=== PATIENT | male | born 1955 | race Caucasian/White ===

== ENCOUNTER 2019-02-09 15:33 | Emergency (ER) | payer SELFPAY ==
[~2019-02-09 15:33] MED LIST: ACYC800T99 PO; HYDR28OI11 TP; [UNRECOGNIZED DRUG - CODE] TP
[2019-02-09] MEDS ORDERED: ASPIRIN 81 MG CHEW ONE (15:42)
[2019-02-09] MEDS ORDERED: NITROGLYCERIN 0.4 MG SUBL SL ONE (15:42)
--- NOTE | 2019-02-09 15:43 | ER Report ---
History and Physical Time Seen By MD: 15:43 Hx. of Stated Complaint: tightness in the chest and trouble breathing for 20 mintues HPI/ROS CHIEF COMPLAINT: Chest tightness, shortness of breath HISTORY OF PRESENT ILLNESS: 63-year-old male patient presents to emergency room with complaint of chest tightness and shortness of breath. Patient states that this started approximately 30 minutes prior to arrival in the emergency room. Patient states that he was not in the middle doing anything but had the sudden onset of chest tightness and shortness of breath. He states he tried to get up and became dizzy and fell backwards. Patient states that happened twice. Patient states that he had a similar episode of this approximately 2 weeks ago, for which he did not seek any medical attention. He states that at that time the s ymptoms resolved after a few minutes. Patient states that this time he did have some tingling all over his body as well as a burning sensation. He states it went from muscles his feet up to the top of his head. He denies any nausea, vomiting or diarrhea. Patient denies having any chest pain. REVIEW OF SYSTEMS: Respiratory: As noted above Cardiovascular: No chest pain, no palpitations. Gastrointestinal: No vomiting, no abdominal pain. Musculoskeletal: No back pain. Allergies: Coded Allergies: No Known Drug Allergies (Verified Allergy, Mild, 01/31/08) Home Meds Reported Medications Acyclovir (Zovirax) 800 Mg Tablet, 800 MG PO 01/31/08 Calamine (Calamine) 120 Ml Lotion, 120 ML TP 01/31/08 Acyclovir (Zovirax) 800 Mg Tablet, 0 PO ONE TABLET BY MOUTH FIVE TIMES A DAY FOR FIVE DAYS 01/31/08 Hydrocortisone Acetate (Hydrocortisone) 28 Gm Oint..gm., 28 GM TP 01/31/08 Past Medical/Surgical History Patient denies any pertinent medical or surgical history. Reviewed Nurses Notes: Yes Constitutional Vital Sign - Last 24 Hours 02/09/19 02/09/19 02/09/19 02/09/19 15:33 15:36 15:36 15:44 Temp 97.5 Pulse 82 107 Resp 22 B/P (MAP) 135/77 135/77 (96) 98/74 (82) Pulse Ox 96 O2 Delivery Room Air 02/09/19 02/09/19 02/09/19 02/09/19 15:46 15:48 15:58 15:58 Pulse 99 93 Resp 20 24 B/P (MAP) 121/72 (88) Pulse Ox 95 96 O2 Delivery Room Air 02/09/19 02/09/19 02/09/19 02/09/19 16:00 16:03 16:05 16:18 Pulse 96 96 94 Resp 20 24 20 B/P (MAP) 83/60 (68) Pulse Ox 99 90 02/09/19 02/09/19 02/09/19 02/09/19 16:30 16:33 16:43 16:48 Pulse 90 94 Resp 14 11 B/P (MAP) 132/77 (95) Pulse Ox 91 92 O2 Flow Rate 2.0 02/09/19 02/09/19 02/09/19 02/09/19 17:00 17:03 17:18 17:19 Pulse 94 92 90 Resp 14 18 15 B/P (MAP) 122/67 (85) Pulse Ox 92 93 93 02/09/19 02/09/19 02/09/19 02/09/19 17:30 17:34 17:49 18:00 Pulse 91 92 Resp 13 19 B/P (MAP) 124/68 (86) 123/64 (83) Pulse Ox 91 91 02/09/19 02/09/19 02/09/19 02/09/19 18:04 18:19 18:30 18:35 Pulse 95 88 87 Resp 20 14 17 B/P (MAP) 121/63 (82) Pulse Ox 91 92 93 02/09/19 02/09/19 02/09/19 02/09/19 18:50 19:00 19:05 19:10 Pulse 90 91 90 Resp 13 15 18 B/P (MAP) 109/66 (80) Pulse Ox 93 94 94 02/09/19 02/09/19 02/09/19 02/09/19 19:25 19:30 19:40 19:55 Pulse 85 83 85 Resp 16 17 17 B/P (MAP) 110/71 (84) Pulse Ox 94 93 92 02/09/19 02/09/19 02/09/19 02/09/19 20:00 20:10 20:25 20:30 Pulse 85 84 Resp 17 17 B/P (MAP) 114/66 (82) 110/72 (85) Pulse Ox 93 94 02/09/19 02/09/19 02/09/19 02/09/19 20:35 20:50 21:00 21:05 Pulse 92 81 91 Resp 24 16 24 B/P (MAP) 117/75 (89) Pulse Ox 93 92 93 02/09/19 02/09/19 02/09/19 02/09/19 21:10 21:25 21:30 21:40 Pulse 91 82 84 Resp 26 12 14 B/P (MAP) 110/70 (83) Pulse Ox 94 93 93 02/09/19 02/09/19 02/09/19 02/09/19 21:55 22:00 22:10 22:25 Pulse 80 85 89 Resp 14 22 58 B/P (MAP) 107/68 (81) Pulse Ox 94 95 94 02/09/19 02/09/19 02/09/19 02/09/19 22:30 22:40 22:45 23:00 Pulse 76 86 85 Resp 11 25 24 B/P (MAP) 130/81 (97) 147/80 (102) Pulse Ox 93 89 90 02/09/19 02/09/19 02/09/19 02/09/19 23:24 23:30 23:45 23:50 Pulse 82 79 78 B/P (MAP) 133/73 (93) 125/79 (94) Pulse Ox 90 90 92 02/10/19 00:00 B/P (MAP) 131/79 (96) Intake and Output 02/09/19 02/09/19 02/10/19 14:59 22:59 06:59 Intake Total 1000 ml 500 ml Balance 1000 ml 500 ml Physical Exam General Appearance: The patient is alert, has no immediate need for airway protection and no current signs of toxicity. Respiratory: Chest is non tender, lungs are clear to auscultation. Patient is tachypneic. Cardiac: regular rate and rhythm Gastrointestinal: Abdomen is soft and non tender, no masses, bowel sounds normal. Musculoskeletal: Neck: Neck is supple and non tender. Extremities have full range of motion and are non tender. Skin: No rashes or lesions. DIFFERENTIAL DIAGNOSIS: After history and physical exam differential diagnosis was considered for chest pain including but not limited to myocardial ischemia, pericarditis pulmonary embolus, chest wall pain, pleural inflammation and pulmonary infectious causes. Medical Decision Making Data Points Result Diagram: 02/09/19 1542 02/09/19 1542 Laboratory Hematology Test 02/09/19 15:42 02/09/19 20:41 Red Blood Count 6.19 M/uL (4.00-5.60) Mean Corpuscular Volume 88.4 fL (80.0-96.0) Mean Corpuscular Hemoglobin 31.0 pg (26.0-33.0) Mean Corpuscular Hemoglobin Concent 35.1 g/dL (32.0-36.0) Red Cell Distribution Width 14.6 % (11.5-14.5) Mean Platelet Volume 7.9 fL (7.2-11.1) Neutrophils (%) (Auto) 71.1 % (39.4-72.5) Lymphocytes (%) (Auto) 20.9 % (17.6-49.6) Monocytes (%) (Auto) 6.1 % (4.1-12.4) Eosinophils (%) (Auto) 1.4 % (0.4-6.7) Basophils (%) (Auto) 0.5 % (0.3-1.4) Nucleated RBC Relative Count (auto) 0.0 /100WBC Neutrophils # (Auto) 5.7 K/uL (2.0-7.4) Lymphocytes # (Auto) 1.7 K/uL (1.3-3.6) Monocytes # (Auto) 0.5 K/uL (0.3-1.0) Eosinophils # (Auto) 0.1 K/uL (0.0-0.5) Basophils # (Auto) 0.0 K/uL (0.0-0.1) Nucleated RBC Absolute Count (auto) 0.00 K/uL D-Dimer Quantitative (PE/DVT) 3.62 ug/ml (0-0.50) Sodium Level 136 mmol/L (137-145) Potassium Level 3.4 mmol/L (3.5-5.0) Chloride Level 103 mmol/L (98-107) Carbon Dioxide Level 22 mmol/L (22-30) Blood Urea Nitrogen 19 mg/dl (9-21) Creatinine 1.80 mg/dl (0.66-1.25) Glomerular Filtration Rate Calc 38.3 Random Glucose 149 mg/dl (75-110) Calcium Level 9.0 mg/dl (8.4-10.2) Total Bilirubin 0.4 mg/dl (0.2-1.3) Aspartate Amino Transf (AST/SGOT) 43 U/L (0-35) Alanine Aminotransferase (ALT/SGPT) 31 U/L (0-56) Alkaline Phosphatase 86 U/L (0-126) Total Protein 7.1 g/dl (6.3-8.2) Albumin 4.2 g/dl (3.5-5.0) Troponin I 0.089 ng/ml Chemistry Test 02/09/19 15:42 02/09/19 20:41 White Blood Count 8.1 k/uL (4.5-11.0) Red Blood Count 6.19 M/uL (4.00-5.60) Hemoglobin 19.2 g/dL (14.0-18.0) Hematocrit 54.8 % (42.0-52.0) Mean Corpuscular Volume 88.4 fL (80.0-96.0) Mean Corpuscular Hemoglobin 31.0 pg (26.0-33.0) Mean Corpuscular Hemoglobin Concent 35.1 g/dL (32.0-36.0) Red Cell Distribution Width 14.6 % (11.5-14.5) Platelet Count 262 K/uL (150-450) Mean Platelet Volume 7.9 fL (7.2-11.1) Neutrophils (%) (Auto) 71.1 % (39.4-72.5) Lymphocytes (%) (Auto) 20.9 % (17.6-49.6) Monocytes (%) (Auto) 6.1 % (4.1-12.4) Eosinophils (%) (Auto) 1.4 % (0.4-6.7) Basophils (%) (Auto) 0.5 % (0.3-1.4) Nucleated RBC Relative Count (auto) 0.0 /100WBC Neutrophils # (Auto) 5.7 K/uL (2.0-7.4) Lymphocytes # (Auto) 1.7 K/uL (1.3-3.6) Monocytes # (Auto) 0.5 K/uL (0.3-1.0) Eosinophils # (Auto) 0.1 K/uL (0.0-0.5) Basophils # (Auto) 0.0 K/uL (0.0-0.1) Nucleated RBC Absolute Count (auto) 0.00 K/uL D-Dimer Quantitative (PE/DVT) 3.62 ug/ml (0-0.50) Glomerular Filtration Rate Calc 38.3 Calcium Level 9.0 mg/dl (8.4-10.2) Total Bilirubin 0.4 mg/dl (0.2-1.3) Aspartate Amino Transf (AST/SGOT) 43 U/L (0-35) Alanine Aminotransferase (ALT/SGPT) 31 U/L (0-56) Alkaline Phosphatase 86 U/L (0-126) Total Protein 7.1 g/dl (6.3-8.2) Albumin 4.2 g/dl (3.5-5.0) Troponin I 0.089 ng/ml Coagulation Test 02/09/19 15:42 D-Dimer Quantitative (PE/DVT) 3.62 ug/ml EKG/Imaging EKG Interpretation 12 lead EKG: Rhythm: Sinus tachycardia with a ventricular rate of 103 bpm [place]: normal QRS: Right bundle branch block ST segments: normal 12 lead EKG done at 2017: Rhythm: normal sinus rhythm with a ventricular rate of 84 bpm [place]: normal QRS: Right bundle branch block ST segments: normal Imaging Chest with lateral, two views. HISTORY: Chest pain, shortness of breath. COMPARISON: None. Vague nodular densities project on the lower chest bilaterally consistent with nipple shadows. The heart and mediastinum are unremarkable. Pulmonary vessels are unremarkable. The lungs are otherwise clear. The pleural surfaces are unremarkable. No pneumothorax. Degenerative changes are present in the spine and shoulders. IMPRESSION: No evidence of acute cardiopulmonary disease. Report Dictated By: Seamus Turner MD at 02/09/2019 4:36 PM Report E-Signed By: Seamus Turner MD at 02/09/2019 4:[address] PE DATE: 02/09/2019 11:43 PM INDICATION: Elevated d-dimer, chest tightness. COMPARISON: Same-day chest radiographs. TECHNIQUE: Axial CT angiogram was obtained through the chest with intravenous contrast. Sagittal and coronal MPR and MIP coronal reformations were also generated. 75 mL isovue 370. One of the following dose optimization techniques was utilized in the performance of this exam: Automated exposure control; adjustment of the mA and/or kV according to the patient's size; or use of an iterative reconstruction technique. Specific details can be referenced in the facility's radiology CT exam operational policy. FINDINGS: Thyroid / Thoracic Inlet: No adenopathy. 2.6 x 2.0 cm hypoattenuating nodule in the superior aspect of the right thyroid lobe. Pulmonary Arteries: Normal. Heart and Aorta: Normal-size heart with no pericardial effusion. Nonaneurysmal thoracic aorta with moderate irregular atherosclerosis. Mediastinum and Kami: Shotty lymph nodes are likely reactive. Lungs and Pleura: No pleural effusion or pneumothorax. Mild atelectasis. No suspicious consolidation. Breast and Axilla: No axillary lymphadenopathy. Upper Abdomen: No visualized acute abnormality. Multiple small hepatic cysts. Bones and Soft Tissues: No suspicious osseous or soft tissue abnormality. IMPRESSION: 1. No pulmonary embolism or other acute abnormality. 2. Moderate irregular atherosclerosis of the aorta. 3. 2.6 cm hypoattenuating right thyroid nodule. This could be further evaluated with nonemergent ultrasound if not previously performed. Dr. Grace discussed this case with OLYA CHEN on 02/09/2019 11:53 PM. Report Dictated By: Pradip Grace MD at 02/09/2019 11:43 PM Report E-Signed By: Pradip Grace MD at 02/09/2019 11:53 PM ED Course/Re-evaluation ED Course Patient was admitted on exam room, history and physical obtained. Differential diagnoses were considered. On examination lungs are clear, heart is regular although tachycardia, abdomen was soft nontender. An IV was started, CBC, CMP, troponin, EKG, chest x-ray were done. Patient did receive a dose of aspirin 324 mg. Initial lab results were unremarkable, EKG showed a sinus tachycardia with a right bundle branch block. Chest x-ray showed no acute findings. I did opt to hang on the patient and repeat a troponin at 3 hours from onset of the chest tightness. The results came back as indeterminant at 0.063. I discussed the findings with the patient. I informed him that I would like to go ahead and watch him for couple more hours and repeat the troponin again. Patient verbalized agreement. Repeat troponin had gone up but still remained in the indeterminate range of 0.089. With the troponin continued to go upper did speak with cardiology [facility], Dr. Waters. He recommended doing a d-dimer to make sure that this wasn't caused by a pulmonary embolism. A d-dimer was done which was elevated at 3.62. We discussed doing a CT pulmonary angiogram which the patient reluctantly agreed to. The results were negative. I discussed the options of being admitted to the hospital, so we repeated the troponin in the morning. The patient adamantly refused stating he would not be admitted to the hospital. He asked if we could do an outpatient lab in the morning. With him not being willing to stay in the hospital and get lab work done here in the hospital and be continued to be monitored we will go ahead and give him an order for an outpatient lab. I will have the results sent to me. I will contact the patient with the lab results. Patient is to return to emergency room with any worsening of his condition. Patient and his verbalized understanding and agreement with plan. I do have concerns about continuing elevation of the troponin. It is my hope that with repeat lab tomorrow that that will return to a lower level. I did discuss the case with Dr. Tapia, hospitalist to see how he felt about admitting. He was uncertain as he was not sure if the troponin was going to stay negative but felt that he could repeat the troponin the morning. However with the patient refusing admission we will go ahead and discharge. Decision to Disposition Date: Feb 10, 2019 Decision to Disposition Time: 00:07 Depart Departure Latest Vital Signs Vital Signs Date Time Temp Pulse Resp B/P (MAP) Pulse Ox O2 Delivery O2 Flow Rate FiO2 02/10/19 00:00 131/79 (96) 02/09/19 23:50 78 92 02/09/19 23:00 24 02/09/19 16:43 2.0 02/09/19 15:58 Room Air 02/09/19 15:36 97.5 Impression: Primary Impression: Chest tightness Condition: Improved Disposition: HOME OR SELF-CARE Patient Instructions: Chest Pain (ED) Additional Instructions: Get plenty of rest. Follow up with [facility] in 1 week. Have a repeat Troponin done tomorrow morning. I will call you with the results. Return to the ER if condition worsens. Take a full strength Aspirin daily. OLYA CHEN Feb 09, 2019 15:43
[2019-02-09] MEDS ORDERED: NS(*) 0.9% 1000 ML BAG 1,000 ML IV ONE (15:51)
[2019-02-09] MEDS ORDERED: ALBUTEROL/IPRATROPIUM 3 ML NEB NEB ONE (15:55)
[2019-02-09] MEDS ORDERED: ASPIRIN 81 MG CHEW PO ONE (15:55)
[2019-02-09 16:08] LABS: PLATELET COUNT, AUTOMATED 262 K/uL (150-450)
--- NOTE | 2019-02-09 16:08 | EKG ---
[place] [facility] [place] NAME: GABRIELA CHEUNG : [id number] MR: [id number] V: [id number] EXAM DATE: ORDERING PHYSICIAN: OLYA CHEN TECHNOLOGIST: RHODA Test Reason : CP Blood Pressure : / mmHG Vent. Rate : 103 BPM Atrial Rate : 103 BPM P-R Int : 142 ms QRS Dur : 142 ms QT Int : 380 ms P-R-T Axes : 065 087 046 degrees QTc Int : 497 ms Sinus tachycardia Right bundle branch block Abnormal ECG No previous ECGs available Confirmed by Ike Bhardwaj ([id number]) on 02/09/2019 4:47:25 PM Referred By: AMBER Confirmed By:Ike Lizama
--- NOTE | 2019-02-09 16:42 | RADIOLOGY IMAGING REPORT ---
[place] [facility] [place] Braulio Piper : 1955 MR: [id number] V: [id number] EXAM DATE: ORDERING PHYSICIAN: OLYA CHEN TECHNOLOGIST: Location: [facility] Patient: Braulio Piper : 1955 Visit/Account:[id number] Date of Sevice: 02/09/2019 Chest with lateral, two views. HISTORY: Chest pain, shortness of breath. COMPARISON: None. Vague nodular densities project on the lower chest bilaterally consistent with nipple shadows. The h eart and mediastinum are unremarkable. Pulmonary vessels are unremarkable. The lungs are otherwise clear. The pleural surfaces are unremarkable. No pneumothorax. Degenerative changes are present in t he spine and shoulders. IMPRESSION: No evidence of acute cardiopulmonary disease. Report Dictated By: Seamus Turner MD at 02/09/2019 4:36 PM Report E-Signed By: Seamus Turner MD at 02/09/2019 4:37 PM WSN:[email or web address]
--- NOTE | 2019-02-09 20:58 | EKG ---
FACILITY: PATIENT NAME: GABRIELA CHEUNG : [id number] MR: [id number] V: [id number] EXAM DATE: ORDERING PHYSICIAN: OLYA CHEN TECHNOLOGIST: DUSTIN Test Reason : REPEAT EKG Blood Pressure : / mmHG Vent. Rate : 084 BPM Atrial Rate : 084 BPM P-R Int : 160 ms QRS Dur : 146 ms QT Int : 402 ms P-R-T Axes : 039 058 009 degrees QTc Int : 475 ms Normal sinus rhythm Right bundle branch block Abnormal ECG When compared with ECG of 09-FEB-2019 15:41, T wave inversion now evident in Inferior leads Confirmed by Ike Bhardwaj ([id number]) on 02/10/2019 6:48:48 AM Referred By: Confirmed By:Ike Lizama
[2019-02-09] MEDS ORDERED: NICOTINE INH SYSTEM 10 MG/INH INH PRN (22:50)
[2019-02-09] MEDS ORDERED: NICOTINE CARTRIDGE 1 EA PO ONE (22:52)
[2019-02-09] MEDS ORDERED: NS(*) 0.9% 500 ML BAG 500 ML IV ONE (22:55)
[2019-02-09] MEDS ORDERED: IOPAMIDOL 76% 150 ML INFUS BTL 150 ML ONE (23:06)
[2019-02-09] MEDS ORDERED: NS 0.9% 25 ML BAG 50 ML ONE (23:07)
--- NOTE | 2019-02-09 23:57 | RADIOLOGY IMAGING REPORT ---
FACILITY: [facility] PATIENT NAME: Braulio Piper : 1955 MR: [id number] V: [id number] EXAM DATE: [id number] ORDERING PHYSICIAN: OLYA CHEN TECHNOLOGIST: [facility] Patient: Braulio Piper : 1955 Visit/Account:[id number] Date of Sevice: 02/09/2019 CT PE DATE: 02/09/2019 11:43 PM INDICATION: Elevated d-dimer, chest tightness. COMPARISON: Same-day chest radiographs. TECHNIQUE: Axial CT angiogram was obtained through the chest with intravenous contrast. Sagittal an d coronal MPR and MIP coronal reformations were also generated. 75 mL isovue 370. One of the follow ing dose optimization techniques was utilized in the performance of this exam: Automated exposure con trol; adjustment of the mA and/or kV according to the patient's size; or use of an iterative reconst ruction technique. Specific details can be referenced in the facility's radiology CT exam operationa l policy. FINDINGS: Thyroid / Thoracic Inlet: No adenopathy. 2.6 x 2.0 cm hypoattenuating nodule in the superior aspect of the right thyroid lobe. Pulmonary Arteries: Normal. Heart and Aorta: Normal-size heart with no pericardial effusion. Nonaneurysmal thoracic aorta with moderate irregular atherosclerosis. Mediastinum and Kami: Shotty lymph nodes are likely reactive. Lungs and Pleura: No pleural effusion or pneumothorax. Mild atelectasis. No suspicious consolidati on. Breast and Axilla: No axillary lymphadenopathy. Upper Abdomen: No visualized acute abnormality. Multiple small hepatic cysts. Bones and Soft Tissues: No suspicious osseous or soft tissue abnormality. IMPRESSION: 1. No pulmonary embolism or other acute abnormality. 2. Moderate irregular atherosclerosis of the aorta. 3. 2.6 cm hypoattenuating right thyroid nodule. This could be further evaluated with nonemergent ul trasound if not previously performed. Dr. Grace discussed this case with OLYA CHEN on 02/09/2019 11:53 PM. Report Dictated By: Pradip Grace MD at 02/09/2019 11:43 PM Report E-Signed By: Pradip Grace MD at 02/09/2019 11:53 PM WSN:[id number]
[2019-02-10] VITALS: BP 131/79
== END 2019-02-10 00:14 | disposition home or self-care (01) ==
LOC: ER 15:37
DX: R07.89 Other chest pain (principal); R00.0 Tachycardia, unspecified; I45.10 Unspecified right bundle-branch block
CPT/HCPCS: 71046; 71275; 84484; 85025; 85379; 93005; 94640; 96360; 99284; J7030; J7040; J7620; Q9967; 82040; 82247; 82310; 82374; 82435; 82565; 82947; 84075; 84132; 84155; 84295; 84450; 84460; 84520

== ENCOUNTER → 2019-02-10 | Outpatient (CLI) | payer SELFPAY | LOC: LAB 10:19 | PROVIDERS: ATTEND Nurse Practitioner Family | DX: R07.89 Other chest pain (principal) | CPT/HCPCS: 36415; 84484 ==